=== PATIENT | female | born 1980 | race Caucasian/White ===

== ENCOUNTER 2022-07-12 16:48 | Emergency (ER) | payer MEDICAID, SELFPAY ==
[2022-07-12 16:49] VITALS: BP 117/79; PULSE 91; RESP 16; TEMP 36.6; O2SAT 99; BMI 35.8
--- NOTE | 2022-07-12 19:08 | EDS_ITS ---
HPI History of Present Illness HPI Narrative: Patient presents with pain in both calves that began today. Patient states it is worse on the right side. Patient states it began rather suddenly. Patient states it has been constant. Patient describes the pain as sharp and burning. Patient states her pain is worse with any ambulation. Patient denies any paresthesias or weakness. Patient denies any trauma or injury. Patient denies any fevers or chills. 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 Patient states she is not currently on any anticoagulants. Chief Complaint: Lower Extremity Injury Informant: patient Onset/Context/Timing Onset: Today Context: Sudden Onset Timing: Continuous Quality of Pain: Sharp and Burning Location: Bilateral lower legs, worse on the right Worsened by: Ambulation Relieved by: Nothing Associated Symptoms Associated Symptoms: Negative for Parasthesia, Weakness or Loss of Funtion PFSH PFSH Medical History (Updated 07/12/22 @ 21:[address] Jakob Thomas DO) Pancreatic tumor Seizures Home Medications gabapentin 600 mg tablet 1,200 mg PO 4X/DAY 10/19/15 [History Last Taken Unknown] levetiracetam 500 mg tablet 500 mg PO TID 10/19/15 [History Last Taken Unknown] promethazine 25 mg tablet 25 mg PO Q6H PRN PRN Nausea ##10 10/19/15 [Rx Last Taken Unknown] Allergy/AdvReac Type Severity Reaction Status Date / Time ketorolac tromethamine Allergy Swelling Verified 07/12/22 16:51 [From Toradol] ondansetron [From Zofran] Allergy Hives Verified 07/12/22 16:51 ondansetron HCl Allergy Angioedema Verified 07/12/22 16:51 [From Zofran (as hydrochloride)] Penicillins Allergy Anaphylaxis Verified 07/12/22 16:51 meperidine HCl [From Demerol] AdvReac Hives Verified 07/12/22 16:51 tetracycline AdvReac Hives Verified 07/12/22 16:51 Surgical History (Updated 07/12/22 @ 19:[address] Jakob Thomas DO) Hx of appendectomy Hx of cholecystectomy Social History Smoking Status: Current every day smoker tobacco type: cigarettes ROS ROS ED Constitutional Constitutional ED: Denies chills or fever(s) Eyes Eyes: Denies blurry vision or change in vision ENT ENT ED: Denies rhinorrhea or sore throat Cardiovascular Cardiovascular: Denies chest pain or palpitations Respiratory/Chest Respiratory/Chest: Denies cough or dyspnea Gastrointestinal Gastrointestinal: Denies nausea or vomiting Genitourinary Genitourinary ED: Denies dysuria or hematuria Musculoskeletal Musculoskeletal: Denies back pain or neck pain Integumentary Denies abscess or rash Neurologic Neurologic: Denies headache(s) or weakness Allergic/Immunologic Allergic/Immunologic ED: Denies mouth swelling or urticaria EXAM Physical Exam Const Vital Signs: 07/12/22 16:49 Temperature 98 F Temperature Source Temporal Pulse Rate 91 Respiratory Rate 16 Blood Pressure 117/79 Blood Pressure Mean 91 Pulse Ox 99 Oxygen Delivery Method Room Air Positive well nourished, well developed and obese General Appearance ED: well developed and NAD Nutritional Appearance: obese HEENT Reports moist mucous membranes Neck supple and no JVD Resp normal respiratory effort and clear to auscultation bilaterally Cardio regular rate, regular rhythm and no murmurs GI normal to inspection, nondistended, normoactive bowel sounds and non-tender Palpation: soft Extremity normal to inspection Extremity Narrative: There is tenderness over the bilateral calves. There is pain with dorsiflexion of the ankles bilaterally. There is no pitting edema noted. General Extremety ED: Yes tenderness; Negative for edema General Extremity: Negative for edema Neuro oriented x3, CN's II-XII intact bilaterally and no sensory deficits noted Sensorium / Orientation: alert Motor Exam: strength 5/5 throughout Psych mental status grossly normal Skin no rashes or lesions noted MDM MDM MDM Narrative Medical decision making narrative: Differential diagnosis includes DVT, muscular strain, and electrolyte abnormality. Venous duplex of the lower extremities will be obtained to assess for DVT. CBC will be obtained to assess for leukocytosis and anemia. Basic metabolic profile will be obtained to assess for electrolyte abnormality and renal function. Lab Data Lab results narrative: CBC was reviewed and showed a mild leukocytosis of 11.3. Basic metabolic profile was reviewed and was essentially within normal limits. Labs: Laboratory Results - last 24 hr 07/12/22 07/12/22 07/12/22 19:48 19:48 20:11 WBC Cancelled 11.3 H Corrected WBC Cancelled RBC Cancelled 3.88 L Hgb Cancelled 12.0 Hct Cancelled 36.1 L MCV Cancelled 93.0 MCH Cancelled 30.9 MCHC Cancelled 33.2 RDW Std Deviation Cancelled 42.7 RDW Coeff of Sanket Cancelled 12.7 Plt Count Cancelled 228 MPV Cancelled 10.7 Immature Gran % (Auto) Cancelled 0.500 Neut % (Auto) Cancelled 49.2 Lymph % (Auto) Cancelled 42.5 H [place] % (Auto) Cancelled 4.6 Eos % (Auto) Cancelled 2.7 Baso % (Auto) Cancelled 0.5 Absolute Neuts (auto) Cancelled 5.6 Absolute Lymphs (auto) Cancelled 4.81 H Total Counted Cancelled Neutrophils % (Manual) Cancelled Band Neutrophils % Cancelled Lymphocytes % (Manual) Cancelled Monocytes % (Manual) Cancelled Eosinophils % (Manual) Cancelled Basophils % (Manual) Cancelled Metamyelocytes % Cancelled Myelocytes % Cancelled Promyelocytes % Cancelled Blast Cells % Cancelled Plasma Cell % (Manual) Cancelled Other Cells % Cancelled Nucleated RBC % Cancelled 0 Nucleated RBCs/100 WBC Cancelled Differential Comment Cancelled Diff Path Review Cancelled Hypersegmented Neuts Cancelled Atypical Lymphocytes Cancelled Reactive Lymphocytes Cancelled Smudge Cells Cancelled Toxic Granulation Cancelled Toxic Vacuolation Cancelled Dohle Bodies Cancelled Hailey Rods Cancelled Platelet Estimate Cancelled Plt Morphology Comment Cancelled RBC Morphology Cancelled Polychromasia Cancelled Hypochromasia Cancelled Poikilocytosis Cancelled Basophilic Stippling Cancelled Anisocytosis Cancelled Microcytosis Cancelled Macrocytosis Cancelled Spherocytes Cancelled Sickle Cells Cancelled Target Cells Cancelled Tear Drop Cells Cancelled Ovalocytes Cancelled Stomatocytes Cancelled [place] Bodies Cancelled Starr Cells Cancelled Bite Cells Cancelled Crenated Cell Cancelled Acanthocytes (Spur) Cancelled Rouleaux Cancelled Schistocytes Cancelled Sodium Cancelled Potassium Cancelled Chloride Cancelled Carbon Dioxide Cancelled Anion Gap Cancelled BUN Cancelled Creatinine Cancelled Estim Creat Clear Calc Cancelled Est GFR (MDRD) Af Amer Cancelled Est GFR (MDRD) Non-Af Cancelled BUN/Creatinine Ratio Cancelled Glucose Cancelled Calcium Cancelled 07/12/22 20:11 WBC Corrected WBC RBC Hgb Hct MCV MCH MCHC RDW Std Deviation RDW Coeff of Sanket Plt Count MPV Immature Gran % (Auto) Neut % (Auto) Lymph % (Auto) [place] % (Auto) Eos % (Auto) Baso % (Auto) Absolute Neuts (auto) Absolute Lymphs (auto) Total Counted Neutrophils % (Manual) Band Neutrophils % Lymphocytes % (Manual) Monocytes % (Manual) Eosinophils % (Manual) Basophils % (Manual) Metamyelocytes % Myelocytes % Promyelocytes % Blast Cells % Plasma Cell % (Manual) Other Cells % Nucleated RBC % Nucleated RBCs/100 WBC Differential Comment Diff Path Review Hypersegmented Neuts Atypical Lymphocytes Reactive Lymphocytes Smudge Cells Toxic Granulation Toxic Vacuolation Dohle Bodies Hailey Rods Platelet Estimate Plt Morphology Comment RBC Morphology Polychromasia Hypochromasia Poikilocytosis Basophilic Stippling Anisocytosis Microcytosis Macrocytosis Spherocytes Sickle Cells Target Cells Tear Drop Cells Ovalocytes Stomatocytes [place] Bodies Starr Cells Bite Cells Crenated Cell Acanthocytes (Spur) Rouleaux Schistocytes Sodium 139 Potassium 3.7 Chloride 109 H Carbon Dioxide 27.0 Anion Gap 3 L BUN 9 Creatinine 0.65 Estim Creat Clear Calc 99.38 Est GFR (MDRD) Af Amer 128 Est GFR (MDRD) Non-Af 106 BUN/Creatinine Ratio 13.9 Glucose 92 Calcium 8.1 L Treatment and Re-Evaluation Narrative: Venous duplex of the lower extremities was ordered. Patient left the emergency department prior to obtaining venous duplex ultrasound. Patient did not tell anyone. Patient did not sign any papers of leaving AGAINST MEDICAL ADVICE. Discharge Plan Triage Chief Complaint: Lower Extremity Injury ED Provider: Jakob Thomas Dx/Rx/DC Orders Clinical Impression: Lower extremity pain, bilateral Prescriptions: No Action gabapentin 600 MG tablet 1,200 mg PO 4X/DAY levetiracetam 500 MG tablet 500 mg PO TID promethazine 25 MG tablet 25 mg PO Q6H PRN PRN (Reason: Nausea) Qty: 10 0RF Primary Care Provider: Care Physician,No Primary Referrals: Care Physician,No Primary [Primary Care Provider] - Disposition Disposition: [facility]opement Discharge Date/Time: 07/12/22 21:09
[2022-07-12 20:22] LABS: Absolute Lymphocyte Count 4.81 X10^3/uL (0.83-4.51); Absolute Neutrophil Count 5.6 X10^3/uL (2.0-7.7); Basophil# 0.06 X10^3/uL; Basophil% 0.5 % (0-1); Eosinophils% 2.7 % (0-5); Hematocrit 36.1 % (37-47); Lymphocyte # 4.81 X10^3/ul (0.83-4.51); Lymphocyte % 42.5 % (19-41); Mean Corp Hgb Conc 33.2 g/dL (32-36); Mean Corpuscular Hgb 30.9 pg (27.0-32.0); Mean Platelet Vol. 10.7 fl (6.2-12.0); Monocyte# 0.52 X10^3/uL; Monocyte% 4.6 % (0-10); NRBC Flagged by Analyzer 0 % (0-5); Neutrophil # 5.56 X10^3/uL (2.7-7.7); Neutrophil % 49.2 % (47-70); Platelet Count 228 K/mm3 (150-450); RBC Distribution Width CV 12.7 % (11.6-14.6); RBC Distribution Width SD 42.7 fl (35.1-43.9); Red Blood Count 3.88 M/mm3 (4.2-5.4); White Blood Count 11.3 K/mm3 (4.4-11.0)
[2022-07-12 20:42] LABS: Anion Gap 3 (5-15); BUN 9 mg/dL (7-18); BUN/Creat Ratio 13.9 RATIO (10-20); Calcium,Total 8.1 mg/dL (8.5-10.1); Chloride 109 mmol/L (98-107); Creatinine, Serum 0.65 mg/dL (0.55-1.02); EST Glomerular Filtration Rate 106 mL/min (>60); Est Glom Filt Rate - Afr Amer 128 mL/min (>60); Estimated Creatinine Clearance 99.38 ml/min; Glucose 92 mg/dL (74-106); Potassium 3.7 mmol/L (3.5-5.1); Sodium Level 139 mmol/L (136-145)
--- NOTE | 2022-07-12 21:07 | ED.RN ---
ultrasound staff reported pt was not in room. ED staff looked around unit and waiting room unable to find pt. Doctor updated on pt elopement
== END 2022-07-12 21:09 | disposition left against medical advice (07) ==
LOC: ED 18:58
PROVIDERS: Emergency Provider Emergency Medicine; Visit Provider Emergency Medicine
DX: M79.604 Pain in right leg (principal); M79.605 Pain in left leg; F17.210 Nicotine dependence, cigarettes, uncomplicated; E66.9 Obesity, unspecified
CPT/HCPCS: 36415; 80048; 85025; 99282; A4216